=== PATIENT | male | born 1955 | race Caucasian/White ===

== ENCOUNTER 2017-03-17 11:35 | Day surgery (SDC) | payer BC ==
[2017-03-13 14:50] LABS: BASOPHILS 1.4 %; BASOPHILS ABSOLUTE 0.09 10/3/uL (0.0-0.16); EOSINOPHILS 1.4 %; EOSINOPHILS ABSOLUTE 0.09 10/3/uL (0.0-0.53); HEMATOCRIT 42.4 % (40.0-51.0); HEMOGLOBIN 14.2 g/dL (13.6-17.8); IMMATURE GRANULOCYTES 0.2 %; IMMATURE GRANULOCYTES ABSOLUTE 0.01 10/3/uL (0.0-0.11); LYMPHOCYTES 31.9 %; MEAN CORPUS HGB CONC 33.5 g/dL (32.0-36.0); MEAN CORPUSCULAR HEMOGLOB 32.9 pg (26.0-34.0); MONOCYTES 14.2 %; MONOCYTES ABSOLUTE 0.89 10/3/uL (0.21-1.20); NEUTROPHILS 50.9 %; NEUTROPHILS ABSOLUTE 3.19 10/3/uL (2.02-8.40); PLATELET COUNT 336 10/3/uL (150-400); RBC DISTRIBUTION WIDTH 13.6 % (12.0-16.0); RED CELL COUNT 4.32 10/6/uL (4.7-6.1); WHITE BLOOD CELLS 6.3 10/3/uL (4.5-10.5)
[2017-03-13 14:51] LABS: MANUAL DIFF NO %; MEAN CORPUSCULAR VOLUME 98.1 fL (80-100)
[2017-03-13 15:09] LABS: A/G RATIO 1.2 (0.7-1.9); ALBUMIN 3.8 G/DL (3.5-5.0); ALKALINE PHOSPHATASE 71 U/L (45-117); BUN (BLOOD UREA NITROGEN) 23 MG/DL (6-23); CALCIUM, SERUM 9.3 MG/DL (8.5-10.4); CHLORIDE, SERUM 111 MMOL/L (96-112); CO2 (CARBON DIOXIDE) 27 MMOL/L (24-34); CREATININE 1.34 MG/DL (0.70-1.30); GFR AFRICAN AMERICAN 66 ML/MIN (>=60); GFR NON AFRICAN AMERICAN 57 ML/MIN (>=60); GLOBULIN 3.2 G/DL (2.5-4.1); GLUCOSE, SERUM 95 MG/DL (60-99); POTASSIUM, SERUM 4.4 MMOL/L (3.5-5.3); PREALBUMIN 23.8 MG/DL (17.0-43.0); SGOT(AST) 27 U/L (5-40); SGPT(ALT) 46 U/L (5-65); SODIUM, SERUM 144 MMOL/L (135-148); TOTAL BILIRUBIN 0.4 MG/DL (0-1.2)
--- NOTE | ~2017-03-17 | OP ---
Record Of Operation [facility] [address] [place]. [address] NAME: NATASHA SWEENEY : 55 STATUS : [facility]#: [id number] AGE: 62 ADM/REG DATE : 03/17/17 MR#: [id number] REPORT SERV DATE: 03/18/17 DICTATED BY: CAMRYN HERMAN JR. DATE: 03/17/17 REPORT STATUS : Draft TRANSCRIBED BY: RICARDO DATE: 03/17/17 DATE OF PROCEDURE: SURGEON: Dr. Camryn Herman. EQUAL OPPORTUNITY DIRECTOR: Fany Mohan. PROCEDURE: Repair of recurrent left inguinal hernia. PREOPERATIVE DIAGNOSIS: Left inguinal hernia. POSTOPERATIVE DIAGNOSIS: Left inguinal hernia. ANESTHESIA: General. INDICATIONS: The patient has presented with left inguinal bulge. He notes that he has had previous bilateral inguinal hernia repair via laparoscopic approach but essentially repair of this recurrent hernia is indicated. FINDINGS: On exploration of inguinal canal, there was no evidence of any previous repair. There was a direct hernia defect with sac and some lipomatous tissue was extended along the cord. This was and reduced. Repair with a plug and patch technique. No other significant findings were encountered. DESCRIPTION OF PROCEDURE: With adequate general anesthesia, the patient was placed in supine position. Left groin was prepped and draped sterilely, 0.5% Marcaine was also used for local infiltration. A curvilinear incision was made within the groin, and incision deepened down through the subcutaneous tissues. The external oblique was divided and underlying structures were dissected, the cord encircled with a Belle drain. The hernia was identified and dissected free of the cord. The sac was excised. Then, the fat was reduced back through the defect. A large polypropylene plug was utilized, this was placed in the defect and secured into the inguinal ligament and superior to the transversalis with mattress suture of 0 Novafil. Then, the mesh was placed to repair the floor this was secured medially to pubic tubercle, superiorly conjoined tendon, transversalis and inguinal ligament. The precut defect was placed around the cord and this produced satisfactory closure of the floor. Then the external oblique was reapproximated with 2-0 Vicryl for the Dajuan's and subcutaneous tissues with 3-0 Vicryl and the skin with dermal Monocryl. Sterile dressings were applied. The patient left the operating room in satisfactory condition. BLOOD LOSS: 5 mL. SHELDON/RICARDO Record Of [place] [address] [place]. [address] NAME: NATASHA SWEENEY : 55 STATUS : [facility] PAT#: [id number] AGE: 62 ADM/REG DATE : 03/17/17 MR#: [id number] REPORT SERV DATE: 03/18/17 DICTATED BY: CAMRYN HERMAN JR. DATE: 03/17/17 REPORT STATUS : Draft TRANSCRIBED BY: RICARDO DATE: 03/17/17 Camryn Herman Jr., M.D. / [id number] CC: Thai Tavarez Jr., SARA J
[~2017-03-17 11:35] MED LIST: AMB10 PO; ESKALITH PO; MEVACOR40 MG PO; NAP500 PO; REMERON30 MG PO; TRAZ100 PO
== END 2017-03-17 18:56 | disposition home or self-care (01) ==
LOC: SDC 11:35
PROVIDERS: Specialist
PROC: 0YQ60ZZ Repair Left Inguinal Region, Open Approach (ICD-10-PCS; principal; 2017-03-17 14:30)
DX: K40.91 Unilateral inguinal hernia, without obstruction or gangrene, recurrent (principal); G47.33 Obstructive sleep apnea (adult) (pediatric); F32.9 Major depressive disorder, single episode, unspecified; F41.9 Anxiety disorder, unspecified; M19.90 Unspecified osteoarthritis, unspecified site; Z87.891 Personal history of nicotine dependence; Z86.73 Personal history of transient ischemic attack (TIA), and cerebral infarction without residual deficits
CPT/HCPCS: 71020; 80053; 83036; 84134; 85025; 88302; 93005; A9270-GY; C1781; J0690; J2250; J2405; J2710; J3010